=== PATIENT | male | born 1955 | race American Indian/Alaskan Native ===

== ENCOUNTER 2020-11-16 14:32 | Day surgery (SDC) | payer MEDICARE, MEDICAID ==
[~2020-11-16] VITALS: Ht 180.3 cm; Wt 95.5 kg
[~2020-11-16 14:32] MED LIST: ALLEGRA60 MG PO; ALLOPURINOL100 MG PO; AUGMENTIN 875 M1 TAB PO; BACTRIM DS 8001 TAB PO; CEPHALEXIN500 M1 PO; COD PO; NORCO PO; OXYCODONE; OXYCONTIN15 MG PO; PERCOCET 325 MG1 TA2 PO; TYLENOL #4 (1 UDTAB PO; ZESTRIL; [UNRECOGNIZED DRUG - OTHER]; [UNRECOGNIZED DRUG - OTHER] PO; allergy med
[2020-11-16] MEDS ORDERED: TYLENOL 500MG500 MG PO (15:27)
[2020-11-16] MEDS ORDERED: COLACE 100100 MG/CAP PO (15:28)
[2020-11-16] MEDS ORDERED: 00186-0370-20 IH (15:28)
[2020-11-16] MEDS ORDERED: FLONASEALLERGY NS (15:29)
[2020-11-16] MEDS ORDERED: NEURONTIN300 MG/CAP PO (15:30)
[2020-11-16] MEDS ORDERED: ATROVENT I0.2 MG/1 M IH (15:30)
[2020-11-16] MEDS ORDERED: ROBAXIN 75750 MG/TAB PO (15:31)
[2020-11-16] MEDS ORDERED: KAPSPARGO SPRIN50 MG PO (15:32)
[2020-11-16] MEDS ORDERED: ROXICODONE 55 MG/TAB PO (15:34)
[2020-11-16] MEDS ORDERED: MS CONTIN 660 MG/TAB PO (15:34)
[2020-11-16] MEDS ORDERED: SENOKOT8.6 MG PO (15:35)
[2020-11-16] MEDS ORDERED: FLOMAX 0.40.4 MG/CAP PO (15:36)
[2020-11-16 15:39] VITALS: BP 142/81; PULSE 62; TEMP 98
[2020-11-16] MEDS ORDERED: PYRIDIUM 100MG100 MG PO (17:29)
[2020-11-16 18:00] VITALS: BP 146/86; PULSE 60; TEMP 98
--- NOTE | 2020-11-16 18:00 | NUR ---
Report from Anel CANTU. Transferred by bed from [facility]. 18 fr lynch catheter noted with 50 cc clear yellow urine. Tubing free of clinks and stat lock noted to left thigh. VSS. Eating bianca crackers and drinking Sprite.
[2020-11-16 18:15] VITALS: BP 142/80; PULSE 64; TEMP 98
[2020-11-16 18:30] VITALS: BP 144/78; PULSE 58; TEMP 98
[2020-11-16 18:45] VITALS: BP 166/94; PULSE 60; TEMP 98
--- NOTE | 2020-11-16 18:45 | NUR ---
INT discontinued intact. Discharge instructions given with teaching on lynch catheter. Transferred to [facility] and discharge instructions given to Constantin CORNEJO
[2020-11-24 17:25] VITALS: BP 141/81; PULSE 60; TEMP 98.4
== END 2020-11-16 19:00 ==
LOC: EUO 14:32
DX: N35.916 Unspecified urethral stricture, male, overlapping sites (principal); G89.29 Other chronic pain; M79.606 Pain in leg, unspecified; I10 Essential (primary) hypertension; J44.9 Chronic obstructive pulmonary disease, unspecified; J30.2 Other seasonal allergic rhinitis; Z74.09 Other reduced mobility; Z87.891 Personal history of nicotine dependence; Z89.612 Acquired absence of left leg above knee; Z79.899 Other long term (current) drug therapy; Z79.891 Long term (current) use of opiate analgesic
CPT/HCPCS: C1769